=== PATIENT | female | born 1995 | race Caucasian/White ===

== ENCOUNTER 2017-04-20 19:40 | Emergency (ER) | payer BC ==
[2017-04-20 20:14] LABS: #Basophils 0.1 thou/uL (0.0-0.2); #Eosinphils 0.3 thou/uL (0.0-0.7); #Lymphocytes 2.2 thou/uL (1.20-3.40); #Monocytes 1.2 thou/uL (0.11-0.59); #Neutrophils 8.4 thou/uL (1.40-6.50); %Basophils 0.8 % (0.0-1.0); %Eosinophils 2.2 % (0.0-10.0); %Lymphocytes 18.2 % (21.0-51.0); %Monocytes 9.7 % (0.0-10.0); Hemoglobin 14.9 g/dL (12.0-16.0); Mean Corpuscular HGB CONC 31.8 g/dL (32.0-36.0); Mean Corpuscular Hemoglobin 28.2 pg (27.0-31.0); Mean Corpuscular Volume 88.7 fl (81.0-99.0); Mean Platelet Volume 7.9 fL (7.4-10.4); Platelet Count 335 thou/uL (130-400); RBC Distribution Width 12.3 % (11.5-14.5); White Blood Cell (WBC) Count 12.1 thou/uL (4.8-10.8)
[2017-04-20 20:36] LABS: ALT (SGPT) 51 U/L (8-55); AST (SGOT) 73 U/L (5-34); Albumin 4.3 g/dL (3.5-5.0); Alkaline Phosphatase 119 U/L (40-150); Anion Gap 12 mmol/L (10-20); BUN (Urea Nitrogen) 8 mg/dL (7.0-18.7); Bilirubin, Total 0.5 mg/dL (0.2-1.2); Calc. Creatinine Clearance 0 mL/min (70-130); Calcium 9.6 mg/dL (7.8-10.44); Carbon Dioxide 25 mmol/L (22-29); Chloride 106 mmol/L (98-107); Estimated GFR-MDRD 90; Globulin 3.5 g/dL (2.4-3.5); Glucose 92 mg/dL (70-105); Lipase 22 U/L (8-78); Potassium 3.6 mmol/L (3.5-5.1); Protein, Total 7.8 g/dL (6.0-8.3); Sodium 139 mmol/L (136-145)
[2017-04-20 22:41] LABS: Bilirubin Small (Negative); Blood, Urine Large (Negative); Clarity CLOUDY (Clear); Glucose, Urine (Dipstick) Negative (Negative); Leukocyte Small (Negative); Nitrite Negative (Negative); Protein, Urine (Dipstick) 30 mg/dL (Neg-Trace); Specific Gravity, Urine 1.027 (1.002-1.036); pH, Urine 5.5 (5.0-9.0)
[2017-04-20 22:43] LABS: Bacteria/HPF 1+ HPF (None Seen); Pregnancy Test - Urine (BHCG) Negative (Negative); Pregu Control Background? CLEAR/WHITE (CLR/WHITE); Pregu Control Bar Appear? YES (CONTROL BAR); Specific Gravity 1.027 (1.002-1.036)
[2017-04-20 22:44] LABS: Pathc Cast-AUWi Flag 2.57 (0-2.49)
[2017-04-20 22:49] LABS: Crystals/HPF RARE CA OXALATE HPF (Negative); Yeast-All Forms None Seen HPF (None Seen)
[2017-04-20 22:50] LABS: Hyaline Casts/LPF 0-3 HYALINE CAST LPF (0-3 Hyaline)
--- NOTE | 2017-04-20 23:46 | RAD ---
UPRIGHT AP VIEW ABDOMEN: 04/20/2017 HISTORY: The patient with history of gastric sleeve procedure. The patient is having abdominal pain. FINDINGS: The patient was administered 30 mL of Gastrografin. AP view abdomen demonstrates contrast within the stomach and most proximal small bowel. Post-surgical change related to gastric sleeve procedure. Surgical clips overlie the left upper quad rant and epigastric region. Bowel gas pattern is overall nonspecific. No dilated loops of small bow el are visualized. Visualized lung bases are clear. Osseous structures are intact. The mid and low er pelvis is excluded from view. IMPRESSION: 1. Nonspecific bowel gas pattern. 2. Post-surgical changes related to gastric sleeve procedure. Contrast is seen within the stomach an d most proximal visualized small bowel. POS: CALEB
--- NOTE | 2017-04-21 00:23 | ULT ---
RIGHT UPPER QUADRANT ULTRASOUND: 04/20/2017 HISTORY: Upper abdominal pain. FINDINGS: There are multiple echogenic foci seen in the gallbladder lumen with posterior shadowing consistent w ith gallbladder calculi with probable sludge within the gallbladder lumen as well. There is no gallb ladder wall thickening or pericholecystic fluid. The common duct measures 0.3 cm in diameter which i s within normal limits. The pancreas is obscured by bowel gas. Visualized portions of the IVC, liver, and right kidney demonstrate a normal sonographic appearance. The right kidney measures 9.8 cm in length. IMPRESSION: Cholelithiasis. The common duct is normal in caliber. POS: KI
== END 2017-04-21 00:57 | disposition home or self-care (01) ==
LOC: ERS 19:40
DX: K80.20 Calculus of gallbladder without cholecystitis without obstruction (principal)
CPT/HCPCS: 36415; 74018; 76705; 80053; 81003; 81015; 81025; 83690; 85025

== ENCOUNTER 2017-04-23 16:59 | Outpatient (CLI) | payer BC ==
[2017-04-23 17:45] LABS: BHCG - Serum Negative (NEGATIVE); Pregs Control Background? CLEAR/WHITE (CLR/WHITE); Pregs Control Bar Appear? YES (CONTROL BAR)
[2017-04-23 17:53] LABS: ALT (SGPT) 46 U/L (8-55); AST (SGOT) 25 U/L (5-34); Alkaline Phosphatase 94 U/L (40-150); Bilirubin, Direct 0.2 mg/dL (0.1-0.3); Bilirubin, Total 0.4 mg/dL (0.2-1.2); Protein, Total 6.6 g/dL (6.0-8.3)
== END 2017-04-23 17:00 | disposition home or self-care (01) ==
LOC: LABBT 16:59
PROVIDERS: ATTEND Surgery
DX: Z01.812 Encounter for preprocedural laboratory examination (principal); K80.20 Calculus of gallbladder without cholecystitis without obstruction
CPT/HCPCS: 80076; 84703

== ENCOUNTER 2017-04-27 05:43 | Day surgery (SDC) | payer BC ==
[2017-04-23 17:09] VITALS: BMI 42.0
[2017-04-27] MEDS ORDERED: cefOXitin 2 GM, Syringe 1 ML in Sterile Water 10 ML SLOW IVP SCH (06:30)
[2017-04-27] MEDS ORDERED: Morphine 10 MG/ML VIAL ONE (06:32)
[2017-04-27] MEDS ORDERED: Midazolam HCl 2 mg/2 ml Vial ONE (06:32)
[2017-04-27] MEDS ORDERED: Bupivacaine/Epinephrine 0.25% 30 ML VIAL ONE (07:19)
--- NOTE | 2017-04-27 08:50 | OP ---
DATE OF PROCEDURE: 04/27/2017 PREOPERATIVE DIAGNOSIS: Symptomatic cholelithiasis. SURGEON: Fabrice Stephenson M.D. PROCEDURE PERFORMED: Laparoscopic cholecystectomy. INDICATIONS: This is a 21-year-old female who has had episodic midepigastric and right upper quadran t pain radiating to the back. Ultrasound showed cholelithiasis. FINDINGS: She had a small caliber cystic duct. She had several medium sized stones. PROCEDURE: After informed consent was obtained, the patient was taken to the operating room, given g eneral endotracheal anesthesia. She was placed in the supine position. The abdomen was prepped and draped in usual fashion. Local anesthesia infiltrated subcutaneously and deep. A subumbilical incis ion was performed. The subcu divided sharply. The fascia grasped 2 stay sutures of 0 Vicryl placed to side of midline. Midline incised. Digital palpation revealed no local adhesions. A blunt 10/12 mm trocar inserted. Pneumoperitoneum was created to a pressure of 15 mmHg. Zero degree laparoscope inserted under direct vision, three 5 mm ports placed subcostally. The gallbladder grasped advanced superiorly. The peritoneum was dissected off to expose the cystic duct, cystic artery and critical v iew. The duct and artery were triply ligated with Hemoclips and divided. The gallbladder was remove d from its fossa utilizing electrocautery, removed from the abdomen through the umbilical port, sent to pathology for further analysis. Hemostasis was assured. Trocars and retractors removed. The fas sarita closed with interrupted 2-0 Vicryl sutures. Skin closed with interrupted 4-0 Rapide. Dermabond applied. The patient tolerated the procedure well and was transferred to recovery in good condition. Sponge and needle count verified correct x2.
[2017-04-27] MEDS ORDERED: Promethazine HCl 25 MG/ML VIAL ONE (10:28)
== END 2017-04-27 11:30 | disposition home or self-care (01) ==
LOC: SDC 05:43
PROVIDERS: ATTEND Surgery
PROC: 0FT44ZZ Resection of Gallbladder, Percutaneous Endoscopic Approach (ICD-10-PCS; principal; 2017-04-27)
DX: K80.10 Calculus of gallbladder with chronic cholecystitis without obstruction (principal); J45.909 Unspecified asthma, uncomplicated; Z98.84 Bariatric surgery status; Z88.8 Allergy status to other drugs, medicaments and biological substances
CPT/HCPCS: 88304; A4216; J0131; J0694; J2250; J2270; J2550